=== PATIENT | female | born 1995 | race Caucasian/White ===

== ENCOUNTER 2017-01-16 14:18 | Emergency (ER) | payer OTHER ==
[~2017-01-16 14:18] MED LIST: AFRIN NASAL SPR15 ML; AFRIN3 ML NS; ALBUTEROL17 GM INH; AMOXICILLIN PO; AMOXICILLIN875 MG PO; ATARAX PO; AZO1 STRIP; BACTRIM DS TABL1 TA1 PO; BC PILL; BENTYL20 MG PO; BIRTH CONTROL PILL; BROMFED DM COU118 ML PO; CIPRO PO; CLARITIN10 M3 PO; CLINDAMYCIN VAG; CLONAZEPAM PO; ELIMITE60 GM TOP; FLAGYL PO; FLEXERIL10 M1 PO; IBUPROFEN PO; IBUPROFEN600 MG PO; KLONOPIN0.5 MG PO; LEVAQUIN750 MG PO; MACROBID100 M1 PO; MEDROL4 MG/DOSE- PO; METRONIDAZOLE PO; MIRALAX255 GM PO; NAPROSYN500 MG PO; NAPROXEN PO; NO MEDICATIONS; PHENERGAN25 M1 PO; PREDNISONE10 MG PO; PRENATA CHEWAB1 EAC1; PRENATAL1 TA1 PO; PROMETHAZINE-D240 ML PO; REMERON15 MG PO; REMERON30 MG PO; ROBITUSSIN AC PO; RONDEC-DM ORAL30 ML PO; SEROQUEL50 M1 PO; SUDAFED30 M1 PO; TESSALON PERLE100 M1 PO; TORADOL10 MG PO; URISPAS100 M1 PO; ZANTAC PO; ZITHROMAX PO; ZOFRAN ODT4 MG DOB; ZOFRAN ODT4 MG PO; ZOFRAN ODT4 MG/UDTAB PO; ZOFRAN PO; ZYRTEC-D TABLE1 EACH PO
[2017-01-16 14:59] LABS: URINE SOURCE CLEAN CATCH
[2017-01-16 15:03] LABS: URINE APPEARANCE CLEAR; URINE BILIRUBIN NEG (NEG); URINE BLOOD NEG (NEG); URINE COLOR YELLOW; URINE KETONE NEG (NEG); URINE LEUKOCYTE ESTERASE NEG (NEG); URINE NITRATE NEG (NEG); URINE PROTEIN NEG (NEG); URINE SPECIFIC GRAVITY 1.025 (1.003-1.035); URINE UROBILINOGEN 0.2 MG/DL (NORM)
[2017-01-16 15:07] LABS: MICRO INDICATED? NO; URINE GLUCOSE 50 MG/DL (NORM)
[2017-01-19 01:56] LABS: CHLAMYDIA TRACH Not Detected (Not Detected); N GONOR Not Detected (Not Detected)
== END 2017-01-16 16:26 | disposition home or self-care (01) ==
LOC: SED 14:18
PROVIDERS: Nurse Practitioner
DX: O99.89 Other specified diseases and conditions complicating pregnancy, childbirth and the puerperium (principal); N89.8 Other specified noninflammatory disorders of vagina
CPT/HCPCS: 81003; 87491; 87591; 87808; 87905; 99284

== ENCOUNTER 2017-02-10 10:14 | Emergency (ER) | payer OTHER | END 2017-02-10 12:10 | disposition home or self-care (01) | LOC: CED 10:14 → CFTX 10:14 | DX: H60.92 Unspecified otitis externa, left ear (principal); Z88.8 Allergy status to other drugs, medicaments and biological substances | CPT/HCPCS: 99282 ==

== ENCOUNTER 2017-02-19 14:08 | Emergency (ER) | payer OTHER | END 2017-02-19 14:25 | disposition left against medical advice (07) | LOC: CED 14:08 | DX: Z53.21 Procedure and treatment not carried out due to patient leaving prior to being seen by health care provider (principal) ==

== ENCOUNTER 2017-04-26 12:50 | Emergency (ER) | payer OTHER ==
[~2017-04-26] VITALS: Ht 160 cm; Wt 90.7 kg
[2017-04-26 13:31] LABS: URINE SOURCE CLEAN CATCH
[2017-04-26 13:38] LABS: URINE APPEARANCE CLOUDY; URINE BILIRUBIN NEG (NEG); URINE BLOOD NEG (NEG); URINE COLOR YELLOW; URINE GLUCOSE 500 MG/DL (NEG); URINE KETONE NEG (NEG); URINE LEUKOCYTE ESTERASE TRACE (NEG); URINE NITRATE NEG (NEG); URINE PH 6.5 (5-8); URINE PROTEIN TRACE (NEG); URINE SPECIFIC GRAVITY 1.022 (1.003-1.035); URINE UROBILINOGEN 0.2 MG/DL (NEG)
[2017-04-26 13:41] LABS: CULTURE INDICATED? YES; URINE BACTERIA AUWI 4+ (NEGATIVE); URINE SQUAMOUS EPITHELIAL CELL MOD /[HPF]
[2017-04-29 00:29] LABS: CHLAMYDIA TRACH Not Detected (Not Detected); N GONOR Not Detected (Not Detected)
== END 2017-04-26 14:41 | disposition home or self-care (01) ==
LOC: CFTX 12:50 → CED 12:50 → CFTX 13:39
PROVIDERS: Physician Assistant
DX: B37.3 Candidiasis of vulva and vagina (principal); E11.9 Type 2 diabetes mellitus without complications; J45.909 Unspecified asthma, uncomplicated; Z88.8 Allergy status to other drugs, medicaments and biological substances
CPT/HCPCS: 81003; 87086; 87491; 87591; 87808; 87905; 99283